=== PATIENT | female | born 1945 | race Caucasian/White ===

== ENCOUNTER 2020-05-12 19:04 | Emergency (ER) | payer MEDICARE, SELFPAY ==
[2020-05-12 19:17] VITALS: BP 137/87; PULSE 84; RESP 16; TEMP 37.4; O2SAT 100
--- NOTE | 2020-05-12 19:24 | ED.GENADULT ---
HPI - General Adult General Chief complaint: Wound/Laceration Stated complaint: possible insect bite Time Seen by Provider: 05/12/20 19:24 Source: patient and RN notes reviewed Mode of arrival: ambulatory Limitations: no limitations History of Present Illness HPI narrative: 74-year-old female presents with complaints of redness, warmth, tenderness, and swelling to RT medial ankle area for the past 2 days. Laney says she was stung by a wasp 2 days ago and area has increased in redness and warmth. Benadryl and Hydrocortisone cream without relief. Radiation of tenderness, redness, and swelling. No exacerbating factors. Denies calf pain. Denies open areas or drainage. Denies fever or chills. Postmenopausal. Remains active. The patient reports she have not been diagnosed with COVID-19. The patient reports she is not waiting for the results of a COVID-19 lab test. The patient reports she do not have fever, chills, weakness, fatigue, myalgia, throat or facial swelling. The patient reports she do not have a new or worsening cough or shortness of breath. Denies chest pain. The patient reports she do not have any rhinorrhea, congestion, sore throat, nausea, vomiting, abdominal pain, and diarrhea. Tolerating po intake well. Denies recent traveling. Denies concerns for COVID-19 or exposures been home with limited outdoor exposure except for essential household needs and return home. At this time, patient is not suspected of having COVID-19. Some parts of this dictation were generated by voice recognition software and may contain typographical and/or grammatical inaccuracies. Related Data Home Medications Medication Instructions Recorded Confirmed atorvastatin 05/12/20 levothyroxine 05/12/20 metformin mg PO 05/12/20 pantoprazole PO 05/12/20 spironolactone 05/12/20 Allergies Allergy/AdvReac Type Severity Reaction Status Date / Time venom-honey bee Allergy Unknown Swelling Verified 12/12/16 11:51 cephalexin [From Keflex] Allergy Rash Verified 05/12/20 19:30 Review of Systems Review of Systems: Narrative: CONSTITUTIONAL: Denies fever, chills, sweats. EYES: Denies visual changes, redness, discharge. ENT: Denies rhinorrhea, congestion, sore throat, otalgia. CARDIOVASCULAR: Denies chest pain, palpitations, edema. RESPIRATORY: Denies dyspnea, wheezing, cough. GASTROINTESTINAL: Denies abdominal pain, nausea, vomiting, diarrhea. GENITOURINARY: Denies dysuria, hematuria, abnormal discharge. SKIN: Complaints of redness, warmth, tenderness, and swelling to RT medial ankle area. MUSCULOSKELETAL: Denies acute back pain, joint pain, or myalgia. NEUROLOGIC: Denies numbness or focal weakness. PSYCHIATRIC: Denies anxiety or depression. All systems reviewed & are unremarkable except as noted in HPI and below. FORMERLY [facility], [facility] Past Medical History Medical History (Updated 05/13/20 @ 00:00 by Nick Dakaren) Diabetes Graves disease History of gastroesophageal reflux (GERD) Hypercholesteremia Lymph node disorder Skin cancer (melanoma) Surgical History Surgical History (Updated 05/12/20 @ 19:38 by JACINTA Rock) S/P skin biopsy Family History Family History (Updated 05/12/20 @ 19:39 by JACINTA Rock) Father Alzheimers disease Mother History of blood clots Embolism to heart cause of Social History Social History (Updated 05/12/20 @ 19:40 by JACINTA Rock) Smoking status: Former smoker Second hand tobacco smoke exposure: No Additional smoking assessment comments: Smoked for a year in her younger years Alcohol intake: current Alcohol use details: Rarely Substance use: never Living arrangements: with family Occupation/Education: retired Gender identity (if verbalized by the patient): Female Comments At time of signature, agree with nurse past medical, surgical, social, and family history. There is no relevant family history pertinen
== END 2020-05-12 19:47 | disposition home or self-care (01) ==
PROVIDERS: Emergency Provider Nurse Practitioner Family
DX: L03.115 Cellulitis of right lower limb (principal); I10 Essential (primary) hypertension; E78.00 Pure hypercholesterolemia, unspecified; E11.9 Type 2 diabetes mellitus without complications; E03.9 Hypothyroidism, unspecified; Z79.84 Long term (current) use of oral hypoglycemic drugs
CPT/HCPCS: 99213; G0463

== ENCOUNTER 2024-09-08 10:00 | Outpatient (RCR) | payer MEDICARE, SELFPAY ==
--- NOTE | 2024-08-06 12:03 | OPREHPOC ---
Outpatient Therapy Plan of Care This is a Multidisciplinary Plan of Care that may contain components documented by all disciplines (PT, OT, and ST.) PT Problem 1 PT Problem #1 Knowledge Deficit PT Goal 1 Goal / Goal Update *indep with HEP Target Visit 8 PT Problem 2 PT Problem #2 Pain PT Goal 1 Goal / Goal Update 1* pt report pain rating at worst of 6/10 2* self assessment Oswestry rating of 16% limitation of activity 3* pt report walking tolerance of 40 minutes Target Visit 8 PT Problem 3 PT Problem #3 Impaired Flexibility PT Goal 1 Goal / Goal Update increase flexibility of hips and trunk, to decrease pull on lumbar- sacral spine: hamstring length with SLR 1* R 60' 2* L 60; anterior hip-quad length with prone knee flexion 3* R 110' 4* L 110' Target Visit 8 PT Problem 4 PT Problem #4 Impaired Strength PT Goal 1 Goal / Goal Update increase trunk strength for stability to spine single leg standing 12 seconds with good stability 1* R 2 * L 3* pt perform trunk strengthening exercises on mat x 20 reps Target Visit 8
--- NOTE | 2024-08-06 12:03 | PTOPEVAL1 ---
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, scoliosis bone spurs and facet joint DJD Activity: active lifestyle; lifting is limited due to recent L wrist fracture/casted and continue to have pain; is able to perform all self and light in home tasks GOAL: less pain--not to have to take pain meds; Reported Pain Level Pain Score Self Report Additional Pain Score Comments pain range of the past week 2-/10; 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 She also has R knee and L ankle/foot pain. Walking is limited to about 30 minutes due to pain. Oswestry self rating of 22% limitation in activity level. With the evaluation, she has good strength of LE's but poor single leg standing tolerance; tightness over both hamstrings, anterior hip-quad muscles; posture of back with flattened lumbar spine with decreased mobility. Skilled PT services are indicated for modalities to decrease pain, therapeutic exercises to increase hip and trunk flexibility and education for HEP and pain control. Plan of Care Interventions Electrical Stimulation,Hot Pack/Cold Pack,Manual Therapy,Neuro Re-education,Patient/Caregiver Education,Therapeutic Activities,Therapeutic Exercise,Ultrasound,Other Other Interventions taping PT Services Indicated Yes Treatment Frequency and 1-2x/wk for 8 visits Duration These treatments will address the objective and functional deficits as defined above. The patient will be advanced safely and appropriately in order for the patient to progress towards his/her prior level of function. Additional exercises will be introduced and as well as a comprehensive home exercise program upon discharge, if needed, ?to ensure carryover of functional gains achieved in the clinic. This treatment plan has been reviewed and agreement upon by the patient.
--- NOTE | 2024-09-08 10:48 | PTOPDC ---
Assessment and note entered by Dina Fink, PT Discharge Report Assessment Status Discharge ICD-10 Condition Codes (PT) Pain in low back M54.50,Pain in right hip M25.551, Difficulty Walking R26.2,R26.9,Weakness R53.1 Onset Dec 2023 Subjective Information doing much better since having therapy, the exercises help her back; walking still hurts back and hips; was able to ride her recumbent, electric bicycle for 7 miles on the trails; have started back to the gym, doing the stationary bike; Reported Pain Level Pain Score Self Report Additional Pain Score Comments pain range in the past week: 0-8/10; R and L low back and lateral hips L > R;; walking/standing activity tolerance 45-60 minutes increase pain: walking outside on pavement decrease pain: stretching exercises, tylenol PRN, heat Assessment PT Clinical Summary Laney has received 8 PT sessions. Compared to the initial evaluation: pain from 2-8/10 to 0-8/10; walking reported tolerance from 30 minutes to 45-60 minutes; self assessment with Oswestry rating of 22% to 14% limitation in activity level; increase flexibility of bilateral hamstring with supine SLR to 55' bilateral and prone knee flexion 100' bilateral; hip extension on R 5'/ L 0'; increase strength of trunk and hips; education completed for HEP and pain management. The goals were partially met. Discharge PT services, she will continue with her HEP and activity as tolerated. Plan of Care PT Services Indicated No
== END 2024-09-08 11:50 | disposition home or self-care (01) ==
LOC: ANHPT 10:00
DX: M25.511 Pain in right shoulder (principal); M54.50 Low back pain, unspecified
CPT/HCPCS: 97110; 97140; 97161; 97530

== ENCOUNTER 2024-11-09 15:08 | Emergency (ER) | payer MEDICARE, SELFPAY ==
--- NOTE | 2024-11-09 15:10 | ED.URI ---
HPI - URI/Sore Throat General Chief Complaint: Upper Respiratory Infection Stated Complaint: fatigue/throat/sinus congestion Time Seen by Provider: 11/09/24 15:10 Source: patient Mode of arrival: ambulatory Limitations: no limitations History of Present Illness HPI Narrative: Laney is an 79-year-old female patient presenting to the clinic today with complaints of body aches, sore throat, sinus congestion, and fatigue 2-3 days. She reports no known fever or chills. Recently had a hysterectomy 3 weeks ago. Denies any problems with her incisions. Denies any chest pain or shortness of breath. MD elicited complaint: sore throat and nasal congestion Related Data Home Medications ?Medication ?Instructions ?Recorded ?Confirmed ?Last Taken ?Type levothyroxine 88 mcg tablet 05/12/20 Unknown History pantoprazole 40 mg tablet,delayed PO 05/12/20 Unknown History release atorvastatin 80 mg tablet 80 mg PO QPM 11/09/24 11/09/24 Unknown History dexlansoprazole 30 mg 30 mg PO .QD 11/09/24 11/09/24 Unknown History capsule,biphase delayed release docusate sodium 100 mg capsule 100 mg PO BID 11/09/24 11/09/24 Unknown History estradiol 0.01% (0.1 mg/gram) 1 appful vaginal .MWF 11/09/24 11/09/24 Unknown History vaginal cream gabapentin 300 mg capsule 300 mg PO Q8H 11/09/24 11/09/24 Unknown History sertraline 50 mg tablet 50 mg PO Q24H 11/09/24 11/09/24 Unknown History Allergies Allergy/AdvReac Type Severity Reaction Status Date / Time venom-honey bee Allergy Unknown Swelling Verified 11/09/24 15:11 cephalexin (From Keflex) Allergy Rash Verified 11/09/24 15:11 Review of Systems Review of Systems: Pertinent positives per HPI. Patient denies any fever, chills, rash, visual changes, dizziness, cough, shortness of breath, chest pain, palpitations, nausea, vomiting, diarrhea, constipation, abdominal pain, or any urinary issues. [facility] Past Medical History Medical History Lymph node disorder Skin cancer (melanoma) Graves disease Diabetes Hypercholesteremia History of gastroesophageal reflux (GERD) Surgical History Surgical History S/P skin biopsy Family History Family History Father Alzheimers disease Mother History of blood clots Embolism to heart cause of Social History Social History Smoking status: Former smoker Second hand tobacco smoke exposure: No Additional smoking assessment comments: Smoked for a year in her younger years Alcohol intake: current Alcohol use details: Rarely Substance use: never Living arrangements: with family Occupation/Education: retired Gender identity (if verbalized by the patient): Female Comments At the time of my signature, I reviewed and agree with the nursing past medical, surgical, social, and family history. There is no relevant family history pertinent to the patient complaint. Exam Narrative: General: Well-developed, well nourished, in no apparent distress Head: Normocephalic, atraumatic Eyes: Pupils equally round and reactive to light bilaterally, EOM intact, sclera and conjunctive clear, no discharge, lids normal Ears: TMs intact and clear, ear canals clear, no drainage, grossly hearing normal. Nose: Nares patent, clear nasal discharge, no inflammation, no sinus tenderness. Mouth: Oral pharynx without lesions or masses, good dentition, MMM. Neck: Supple, trachea midline, no enlargement of anterior or posterior cervical nodes, no thyroid masses or goiter palpable. Cardio: Regular rate and rhythm, s1 and s2 normal, no murmur appreciated. Resp: Clear to auscultation bilaterally, no rhonchi, rales, wheezing or rubs Course Course Emergency Course: Portions of this record may have been created with voice recognition software. Level of Care: Express Care Visit Vital Signs Vital signs: Vital Signs Temperature 36.3 C L 11/09/24 15:18 Pulse Rate 79 11/09/24 15:18 Respiratory Rate 16 11/09/24 15:18 Blood Pressure 129/86 11/09/24 15:18 Pulse Oximetry 98 11/09/24 15:18 Oxygen Delivery Room Air 11/09/24 15:18 Temperature 36.3 C L 11/09/24 15:18 Pulse Rate 79 11/09/24 15:18 Respiratory Rate 16 11/09/24 15:18 Blood Pressure 129/86 11/09/24 15:18 Pulse Oximetry 98 11/09/24 15:18 Oxygen Delivery Room Air 11/09/24 15:18 Vital signs reviewed MDM - URI/Sore Throat MDM Narrative Medical decision making narrative: At the time of visit patient is resting comfortably on the exam table. Patient appears to be nontoxic. Labs: Covid, influenza, and strep test were performed. All testing was negative. We will send strep for culture. Plan: I suspect patient has URI/pharyngitis/viral syndrome. Supportive measures were discussed with the patient and they voiced understanding discharge instructions and agrees to treatment plan. Return precautions reviewed Differential Diagnosis Differential diagnosis: Likely upper respiratory infection, otitis media, sinusitis, viral infection, bronchitis, influenza, pharyngitis and other (COVID) Discharge Plan Discharge Clinical Impression: Viral infection Upper respiratory infection Qualifiers: URI type: unspecified URI Qualified Code(s): J06.9 - Acute upper respiratory infection, unspecified Pharyngitis Qualifiers: Pharyngitis/tonsillitis etiology: unspecified etiology Qualified Code(s): J02.9 - Acute pharyngitis, unspecified Patient Disposition: Home, Self-Care Condition: Stable Instructions: Antibiotic Form, Pharyngitis (ED), Upper Respiratory Infection (ED), Viral Syndrome (ED) Additional Instructions: COVID, influenza, and strep test were all negative. We will send strep for culture if this comes back positive we will contact you in place you on antibiotics at that time. May take DayQuil/NyQuil for cold/flu symptoms Increase fluids and stay well hydrated Tylenol/motrin for pain/fever Flonase and OTC antihistamines as directed Vicks vapor rub to open sinuses Sinus rinses for congestion Cepacol spray, cough drops, throat lozenges, warm tea with honey/lemon, gargle salt water to soothe throat BRAT diet for diarrhea Clear liquids x 24 hours then advance as tolerated for nausea/vomiting Go to the ED if you develop a worsening in your condition- high fever not controlled by Tylenol or Motrin, dehydration, weakness, lethargy, shortness of breath, or chest pain. Follow up with your PCP in 3-5 days if symptoms persist. Patient Language: Greenlandic Prescriptions: No Action levothyroxine 88 mcg tablet pantoprazole 40 mg tablet,delayed release (DR/EC) PO doxycycline monohydrate 100 mg capsule 100 mg PO BID 7 Days Qty: 14 0RF atorvastatin 80 mg tablet 80 mg PO QPM docusate sodium 100 mg capsule 100 mg PO BID dexlansoprazole 30 mg capsule,biphase delayed releas 30 mg PO .QD estradiol 0.01 % (0.1 mg/gram) cream 1 appful VAGINAL .MWF sertraline 50 mg tablet 50 mg PO Q24H gabapentin 300 mg capsule 300 mg PO Q8H Follow-up/Referrals: UNKNOWN,DOCTOR [Non-Staff] - Time of Disposition: 15:34 Quality NIHSS Nursing Documentation ED NIHSS nursing documentation: reviewed/agree
[2024-11-09 15:18] VITALS: BP 129/86; PULSE 79; RESP 16; TEMP 36.3; O2SAT 98
[2024-11-09 15:44] LABS: EDCOVIDSCREEN Negative (Negative); EDINFLUASCREEN Negative (Negative); EDINFLUBSCREEN Negative (Negative); EDSTREPNEGPOS1 Negative (Negative)
== END 2024-11-09 15:44 | disposition home or self-care (01) ==
PROVIDERS: Emergency Provider Nurse Practitioner Family
DX: B34.9 Viral infection, unspecified (principal); J06.9 Acute upper respiratory infection, unspecified; J02.9 Acute pharyngitis, unspecified; Z20.822 Contact with and (suspected) exposure to COVID-19; Z87.891 Personal history of nicotine dependence; E11.9 Type 2 diabetes mellitus without complications; E78.00 Pure hypercholesterolemia, unspecified; E05.00 Thyrotoxicosis with diffuse goiter without thyrotoxic crisis or storm; K21.9 Gastro-esophageal reflux disease without esophagitis; Z85.820 Personal history of malignant melanoma of skin
CPT/HCPCS: 87081; 87426; 87804; 87880; 99213; G0463